=== PATIENT | female | born 1995 | race Caucasian/White ===

== ENCOUNTER 2017-01-10 11:42 | Emergency (ER) | payer BC ==
[2017-01-10 12:06] VITALS: BP 118/65
--- NOTE | 2017-01-10 15:50 | UC ---
latrice Sexton Timothy, scribed for Romina Mcmullen MD on 01/10/17 at 1227 . Abdominal Pain Female HPI - HPI Summary HPI Summary: Daja Granados is a 21 yo female presenting to [facility] with 4/10 constant, cramping abdominal pain for the past week. she states it started out as lower abd pain and became upper abd pain in the last 2-3 days. She states she noticed the abd was tender to touch when the pain first started, and now has cramping/aches with certain movements. She states there are intermittent stabbing pains. She says initially it felt like menstrual cramps. She self-medicated yesterday with OTC laxatives to relieve constipation, which she states were effective, although the abd pain persists. She woke up today with noticeably worse pain. She had some nausea this morning. She denies fever, vomiting, vaginal discharge , or urinary symptoms, and took a test this morning which returned negative results. She had a tonsillectomy, but denies any other MHx. Her LNMP began 12/30/16. She is currently on hormonal control. - History of Current Complaint Chief Complaint: UCAbdominalPain Stated Complaint: LOWER ABD PAIN Time Seen by Provider: 01/10/17 12:08 Hx Obtained From: Patient Hx Last Menstrual Period: 01/03/17 Onset/Duration: Gradual Onset, Lasting Days, Still Present, Worse Since - today Timing: Constant Severity Initially: Moderate Severity Currently: Moderate Pain Intensity: 4 Pain Scale Used: 0-10 Numeric Location: Discrete At: LLQ Radiates: No Character: Aching, Cramping Aggravating Factor(s): Movement Alleviating Factor(s): Nothing Associated Signs and Symptoms: Positive: Constipation, Vaginal Discharge. Negative: Urinary Symptoms, Nausea, Vomiting, Diarrhea Allergies/Adverse Reactions: Allergies Allergy/AdvReac Type Severity Reaction Status Date / Time No Known Allergies Allergy Verified 01/10/17 11:55 PMH/Surg Hx/FS Hx/Imm Hx Previously Healthy: Yes Endocrine History Of: Denies: Diabetes, Thyroid Disease Cardiovascular History Of: Denies: Cardiac Disorders, Hypertension Respiratory History Of: Denies: COPD, Asthma GI/ History Of: Denies: Ulcer - Surgical History Surgical History: Yes Surgery Procedure, Year, and Place: TONSILLECTOMY - Family History Known Family History: Positive: Other - breast cancer, lung cancer - Social History Alcohol Use: None Substance Use Type: None Smoking Status (MU): Never Smoked Tobacco - Immunization History Most Recent Influenza Vaccination: Fall 2015 Vaccination Up to Date: Yes Review of Systems Constitutional: Negative Skin: Negative Eyes: Negative ENT: Negative Respiratory: Negative Cardiovascular: Negative Gastrointestinal: Abdominal Pain, Other - nausea Genitourinary: Negative Motor: Negative Neurovascular: Negative Musculoskeletal: Negative Neurological: Negative Psychological: Negative All Other Systems Reviewed And Are Negative: Yes Physical Exam Triage Information Reviewed: Yes Appearance: No Pain Distress, Well-Nourished, Ill-Appearing Vital Signs: Initial Vital Signs Temp 98.5 F 01/10/17 11:56 Pulse 80 01/10/17 11:56 Resp 18 01/10/17 11:56 BP 118/65 01/10/17 11:56 Pulse Ox 99 01/10/17 11:56 Vital Signs Reviewed: Yes Eyes: Positive: Conjunctiva Clear ENT: Positive: Hearing grossly normal, Pharynx normal Neck: Positive: Supple, Nontender Respiratory: Positive: Chest non-tender, Lungs clear, Normal breath sounds, No respiratory distress Cardiovascular: Positive: RRR, No Murmur, Pulses Normal, Brisk Capillary Refill Abdomen Description: Positive: No Organomegaly, Soft. Negative: Nontender - left suprapubic tenderness, CVA Tenderness (R), CVA Tenderness (L), Distended, Guarding, McBurney's Point Tenderness, Peritoneal Signs, Pulsatile Mass Bowel Sounds: Positive: Present Musculoskeletal: Positive: Strength Intact, ROM Intact Neurological: Positive: Alert, Muscle Tone Normal Psychological Exam: Normal Skin Exam: Normal Re-Evaluation - Re-Evaluation First Eval Re-Evaluation Time: 14:12 Change: Unchanged Comment: Pelvic exam was performed with witness (Jennifer, nurse), moderate amount of white discharge, no cervical motion tenderness, uterus normal size, nontender. Adnexae have no masses, minimal tenderness on the left. Second Eval Re-Evaluation Time: 14:22 Change: Unchanged Comment: inquired about Pt medications, Pt is agreeable to be discharged. Abd Pain Female Course/Dx - Course Course Of Treatment: Daja Granados is a 21 yo female presenting to [facility] with lower abd pain for the past week, moving to become upper abd pain in the last 2- 3 days. After clinical examination and review of her UA results, she will be discharged home with UTI and pelvic pain and rx for Bactrim. Await pelvic cultures. UHG neg. UA results: color: yellow. Character: cloudy. Odor: none. Bilirubin: negative. Urobilinogen: normal. ketones: negative. ascorbic acid: negative. Glucose: negative. Protein: 30 mg/dL. Blood: negative. pH: 5. Nitrite: negative. Leukocytes: 75 WBC's/microliter. Specific gravity: 1.030 - Differential Dx/Diagnosis Differential Diagnosis: Constipation, Diverticulitis, Ovarian Cyst, Pelvic Inflammatory Disease, Renal Colic, Urinary Tract Infection, Other - vaginitis Provider Diagnoses: UTI, pelvic pain Discharge - Discharge Plan Condition: Stable Disposition: HOME Prescriptions: Sulfamethox/Trimethoprim DS* [Bactrim DS 800/160 TAB*] 1 tab PO BID #10 tab Patient Education Materials: Urinary Tract Infection in Women (ED), Pelvic Pain in Women (ED) Forms: *School Release Referrals: Davian Jensen MD [Primary Care Provider] - 2 Days Additional Instructions: Please follow up with your primary care physician regarding your visit to urgent care today. Return to urgent care or the emergency department with any new or recurring symptoms. The documentation as recorded by the latrice tanner Timothy accurately reflects the service I personally performed and the decisions made by , Romina Mcmullen MD.
== END 2017-01-10 15:22 | disposition home or self-care (01) ==
LOC: UCEAST 11:42
DX: N39.0 Urinary tract infection, site not specified (principal); R10.2 Pelvic and perineal pain; Z32.02 Encounter for pregnancy test, result negative
CPT/HCPCS: 81002; 81025; 87086; 87480; 87491; 87510; 87591; 87661; 99212; G0463